=== PATIENT | female | born 1980 | race American Indian/Alaskan Native ===

== ENCOUNTER 2017-06-16 10:22 | Outpatient (CLI) | payer BC, MEDICAID ==
--- NOTE | 2017-06-16 14:02 | Ultrasound Report ---
ULTRASOUND ABDOMEN COMPLETE: TECHNIQUE: Transabdominal ultrasound with color Doppler interrogation. HISTORY: Nausea. COMPARISON: none. FINDINGS: LIVER: Normal. BILIARY SYSTEM: Normal. PANCREAS: Normal. SPLEEN: Normal. KIDNEYS: Normal. AORTA/IVC: Normal. ASCITES: None. IMPRESSION: Unremarkable exam.
== END 2017-06-16 10:23 | disposition home or self-care (01) ==
LOC: US 10:22
DX: R11.0 Nausea (principal)
CPT/HCPCS: 76700